=== PATIENT | male | born 1975 | race Caucasian/White ===

== ENCOUNTER 2022-02-14 20:29 | Emergency (ER) | payer BC ==
[~2022-02-14 20:29] MED LIST: Iopamidol-370 76% 500 ML 1 ML ONE
[2022-02-14 20:47] LABS: #Eosinphils 0.1 thou/uL (0.0-0.7); #Monocytes 0.8 thou/uL (0.11-0.59); #Neutrophils 5.3 thou/uL (1.40-6.50); %Basophils 0.5 % (0.0-1.0); %Eosinophils 1.6 % (0.0-10.0); %Lymphocytes 23.8 % (21.0-51.0); %Monocytes 9.4 % (0.0-10.0); %Neutrophils 64.8 % (42.0-75.0); Hemoglobin 13.1 g/dL (14.0-18.0); Mean Corpuscular HGB CONC 33.2 g/dL (32.0-36.0); Mean Corpuscular Hemoglobin 31.6 pg (27.0-31.0); Mean Platelet Volume 7.5 fL (7.4-10.4); Platelet Count 231 thou/uL (130-400); RBC Distribution Width 12.3 % (11.5-14.5); Red Blood Cell (RBC) Count 4.14 mill/uL (4.70-6.10); White Blood Cell (WBC) Count 8.2 thou/uL (4.8-10.8)
[2022-02-14 21:09] LABS: ALT (SGPT) 61 U/L (8-55); AST (SGOT) 70 U/L (5-34); Albumin 3.8 g/dL (3.5-5.0); Alkaline Phosphatase 77 U/L (40-110); Anion Gap 15 mmol/L (10-20); BUN (Urea Nitrogen) 13 mg/dL (8.9-20.6); Bilirubin, Total 0.3 mg/dL (0.2-1.2); CK (CPK) 153 U/L (30-200); Calc. Creatinine Clearance 0 mL/min (70-130); Calcium 9.1 mg/dL (7.8-10.44); Carbon Dioxide 23 mmol/L (22-29); Chloride 105 mmol/L (98-107); Estimated GFR 76; Globulin 3.4 g/dL (2.4-3.5); Glucose 121 mg/dL (70-105); Potassium 3.3 mmol/L (3.5-5.1); Protein, Total 7.2 g/dL (6.0-8.3); Sodium 140 mmol/L (136-145)
[2022-02-14] MEDS ORDERED: Morphine 4 MG/ML VIAL ONE (21:27)
[2022-02-14] MEDS ORDERED: Ondansetron PF 4 MG/2 ML Vial ONE (21:28)
[2022-02-14] MEDS ORDERED: Boostrix 0.5 ML (Tdap) VIAL ONE (21:28)
[2022-02-14] MEDS ORDERED: CEFAZOLIN 1 GM VIAL ONE (21:28)
[2022-02-14] MEDS ORDERED: Lidocaine 1% PF 5 ML VIAL ONE ×2 (23:01→23:02)
== END 2022-02-15 00:06 | disposition home or self-care (01) ==
LOC: ERS 20:29
DX: S81.011A Laceration without foreign body, right knee, initial encounter (principal); M23.91 Unspecified internal derangement of right knee; I10 Essential (primary) hypertension; V80.010A Animal-rider injured by fall from or being thrown from horse in noncollision accident, initial encounter
CPT/HCPCS: 12002; 70450; 71260; 72125; 74177; 80053; 82550; 85025; 90471; 90715; 96374; 96375; G0390; J0690; J2270; J2405; Q9967

== ENCOUNTER 2022-11-19 11:58 | Emergency (ER) | payer BC | END 2022-11-19 13:24 | disposition home or self-care (01) | LOC: ERS 11:58 | DX: M79.89 Other specified soft tissue disorders (principal); I10 Essential (primary) hypertension; F17.220 Nicotine dependence, chewing tobacco, uncomplicated; Z79.899 Other long term (current) drug therapy ==